=== PATIENT | male | born 1955 | race African-American/Black ===

== ENCOUNTER 2019-04-05 12:04 | Outpatient (CLI) | payer BC ==
[2019-04-05 13:08] LABS: ABG BASE EXCESS 0.4 mmol/L; ABG PCO2 31.1 mmHg (35.0-45.0); ABG PH 7.483 (7.350-7.450); ABG PO2 90.7 mmHg (75.0-100.0); AaDO2 21.8 mmHg; COHb 0.8 % (0.5-1.5); MetHb 0.5 % (0.0-1.5); O2Hb 95.7 % (94.0-97.0); SITE, ABG Left Radial; VENT MODE, BG ROOM AIR
== END 2019-04-05 23:59 | disposition home or self-care (01) ==
LOC: RT 12:04
PROVIDERS: ATTEND Internal Medicine Pulmonary Disease
DX: R06.02 Shortness of breath (principal)
CPT/HCPCS: 36600